=== PATIENT | male | born 1970 | race Caucasian/White ===

== ENCOUNTER → 2021-07-05 | Outpatient (CLI) | payer OTHER ==
[~2021-07-05] MED LIST: ATIV1TAB10 PO; MIRT1TAB PO
== END ==
LOC: M LABSMTC 10:44
PROVIDERS: ATTEND Anesthesiology
DX: Z01.812 Encounter for preprocedural laboratory examination (principal); Z20.822 Contact with and (suspected) exposure to COVID-19

== ENCOUNTER 2021-07-09 08:19 | Day surgery (SDC) | payer OTHER ==
[~2021-07-09] VITALS: Ht 175.3 cm; Wt 74.8 kg
[~2021-07-09 08:19] MED LIST changes: +NS 1,000 ML IV ONE
[2021-07-09] MEDS ORDERED: LIDOCAINE 2% 100MG/5ML SDV (FOR ANES.) As Ordered ONE (09:15)
[2021-07-09] MEDS ORDERED: propofoL 200 MG/20 ML VIAL As Ordered ONE (09:15)
--- NOTE | 2021-07-09 10:15 | ROOR ---
Patient Name: Jarvis Carbone Procedure Date: 07/09/2021 9:29 AM Date of : 1970 Age: 51 Room: [facility] Gender: Male Note Status: Finalized Procedure: Colonoscopy Indications: Screening for colorectal malignant neoplasm Providers: Nguyễn Baker MD Referring MD: Janusz Harris MD Requesting Provider: Medicines: Monitored Anesthesia Care Complications: No immediate complications. Procedure: Pre-Anesthesia Assessment: - Prior to the procedure, a History and Physical was performed, and patient medications and allergies were reviewed. The patient is competent. The risks and benefits of the procedure and the sedation options and risks were discussed with the patient. All questions were answered and informed consent was obtained. Patient identification and proposed procedure were verified by the physician, the nurse and the anesthesiologist in the procedure room. Mental Status Examination: alert and oriented. Airway Examination: normal oropharyngeal airway and neck mobility. Respiratory Examination: clear to auscultation. CV Examination: normal. Prophylactic Antibiotics: The patient does not require prophylactic antibiotics. Prior Anticoagulants: The patient has taken no previous anticoagulant or antiplatelet agents. ASA Grade Assessment: II - A patient with mild systemic disease. After reviewing the risks and benefits, the patient was deemed in satisfactory condition to undergo the procedure. The anesthesia plan was to use monitored anesthesia care (MAC). Immediately prior to administration of medications, the patient was re-assessed for adequacy to receive sedatives. The heart rate, respiratory rate, oxygen saturations, blood pressure, adequacy of pulmonary ventilation, and response to care were monitored throughout the procedure. The physical status of the patient was re-assessed after the procedure. The Colonoscope was introduced through the anus and advanced to the terminal ileum, with identification of the appendiceal orifice and IC valve. The colonoscopy was performed without difficulty. The patient tolerated the procedure well. The quality of the bowel preparation was good. The terminal ileum, ileocecal valve, appendiceal orifice, and rectum were photographed. Scope insertion time was 2 minutes. Scope withdrawal time was 9 minutes. The total duration of the procedure was 12 minutes. Findings: The perianal and digital rectal examinations were normal. The terminal ileum appeared normal. Normal mucosa was found in the entire colon. Non-bleeding external and internal hemorrhoids were found during retroflexion. The hemorrhoids were medium-sized. No other significant abnormalities were identified in a careful examination of the remainder of the colon. Impression: - The examined portion of the ileum was normal. - Normal mucosa in the entire examined colon. - Non-bleeding external and internal hemorrhoids. - No specimens collected. Recommendation: - Patient has a contact number available for emergencies. The signs and symptoms of potential delayed complications were discussed with the patient. Return to normal activities tomorrow. Written discharge instructions were provided to the patient. - High fiber diet. - Continue present medications. - Use fiber, for example Citrucel, Fibercon, Konsyl or Metamucil. - Repeat colonoscopy in 10 years for screening purposes. - Return to GI clinic if new symptoms. - Return to primary care physician. Procedure Code(s): --- Professional --- 15818, Colonoscopy, flexible; diagnostic, including collection of specimen(s) by brushing or washing, when performed (separate procedure) Diagnosis Code(s): --- Professional --- Z12.11, Encounter for screening for malignant neoplasm of colon K64.8, Other hemorrhoids CPT copyright 2019 [employer]. All rights reserved. The codes documented in this report are preliminary and upon rehab rn review may be revised to meet current compliance requirements. Nguyễn Baker MD Nguyễn Baker MD 07/09/2021 10:14:57 AM Electronically signed by Nguyễn Baker MD Number of Addenda: 0 Note Initiated On: 07/09/2021 9:29 AM Estimated Blood Loss: Estimated blood loss: none.
[2021-07-09 10:25] VITALS: BP 114/62
== END 2021-07-09 10:36 | disposition home or self-care (01) ==
LOC: M OPP 08:19
PROVIDERS: ATTEND Internal Medicine Gastroenterology
DX: Z12.11 Encounter for screening for malignant neoplasm of colon (principal); Z80.0 Family history of malignant neoplasm of digestive organs; K64.8 Other hemorrhoids; Z79.899 Other long term (current) drug therapy; Z80.3 Family history of malignant neoplasm of breast; Z80.1 Family history of malignant neoplasm of trachea, bronchus and lung

== ENCOUNTER → 2024-09-19 | Outpatient (CLI) | payer BC, OTHER ==
[~2024-09-19] MED LIST changes: -NS 1,000 ML IV ONE
[2024-09-19 16:57] LABS: HEMOGLOBIN A1c 5.1 % (4.0-6.0)
[2024-09-19 17:12] LABS: RHEUMATOID FACTOR QUANT < 3.5 IU/ML (<14); THYROID STIMULATING HORMONE 1.949 uIU/ML (0.55-4.78)
[2024-09-19 17:13] LABS: FOLATE > 24.0 NG/ML (>5.4); VITAMIN B12 LEVEL 514 PG/ML (211-911)
[2024-09-21 23:43] LABS: T P ELECTROPHORESIS SO 7.4 g/dL (6.1-8.1)
[2024-09-23 10:51] LABS: ANA SCREEN, IFA NEGATIVE (NEGATIVE)
[2024-09-24 06:56] LABS: ALBUMIN SPEP 4.5 g/dL (3.8-4.8); ALPHA-1-GLOBULINS SO 0.2 g/dL (0.2-0.3); ALPHA-2-GLOBULINS SO 0.6 g/dL (0.5-0.9); BETA 2 GLOBULIN 0.4 g/dL (0.2-0.5); BETA-GLOBULIN SO 0.5 g/dL (0.4-0.6)
[2024-09-24 18:18] LABS: VITAMIN E(ALPHA TOCOPHEROL) 17.2 mg/L (5.7-19.9); VITAMIN E(GAMMA TOCOPHEROL) < 1.0 mg/L (<=4.3)
[2024-09-26 15:32] LABS: VITAMIN B6,PYRIDOXAL PHOSPHATE 46.1 ng/mL (2.1-21.7)
[2024-09-26 18:11] LABS: VITAMIN B1 LEVEL WHOLE BLOOD 155 nmol/L (78-185)
== END ==
LOC: M PLALAB 12:36
PROVIDERS: ATTEND Psychiatry & Neurology Neurology
DX: G62.9 Polyneuropathy, unspecified (principal); E07.9 Disorder of thyroid, unspecified